=== PATIENT | male | born 1995 | race American Indian/Alaskan Native ===

== ENCOUNTER 2019-06-06 14:59 | Emergency (ER) | payer BC, OTHER ==
[2019-06-06 15:07] VITALS: BP 124/90
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
== END 2019-06-06 16:50 | disposition left against medical advice (07) ==
LOC: ED 14:59
DX: R51 Headache (principal); M54.2 Cervicalgia; M25.511 Pain in right shoulder; V49.59XA Passenger injured in collision with other motor vehicles in traffic accident, initial encounter; Y93.89 Activity, other specified; Y92.410 Unspecified street and highway as the place of occurrence of the external cause; Y99.8 Other external cause status
CPT/HCPCS: 99282